=== PATIENT | female | born 2000 | race Caucasian/White ===

== ENCOUNTER 2020-01-15 08:48 | Observation (INO) | payer BC ==
--- NOTE | 2020-01-15 11:20 | ER Document Report ---
Entered by MAALCHI SÁNCHEZ SCRIBE 01/15/20 1049 Acting as scribe for:SEBASTIAN ETIENNE MD ED Skin Rash/Insect Bite/Abscs - General Chief Complaint: Abscess Stated Complaint: ABSCESS/TAILBONE Time Seen by Provider: 01/15/20 10:48 Mode of Arrival: Ambulatory Information source: Patient Notes: This 19 year old female patient presents to the emergency department today with complaints of an abscess to her tailbone. Patient states that she first noticed pain in this area on 01/08 and then on 01/11 she noticed a "bump" at the top of her buttocks. Patient was started on septra 800 BID for 10 days on 01/11 but the area has gotten larger and more painful per history. - Related Data Allergies/Adverse Reactions: Penicillins Allergy (Verified 01/15/20 09:01) Home Medications: . Colace Past Medical History - General Information source: Patient - Social History Smoking Status: Unknown if Ever Smoked Cigarette use (# per day): No Frequency of alcohol use: None Drug Abuse: None Occupation: works at an assitive living facility Family History: Reviewed & Not Pertinent - Medical History Medical History: Negative Surgical Hx: Negative Review of Systems - Review of Systems Constitutional: No symptoms reported EENT: No symptoms reported Cardiovascular: No symptoms reported Respiratory: No symptoms reported Gastrointestinal: No symptoms reported Genitourinary: No symptoms reported Female Genitourinary: No symptoms reported Musculoskeletal: No symptoms reported Skin: See HPI, Lesions - buttock abscess Hematologic/Lymphatic: No symptoms reported Neurological/Psychological: No symptoms reported -: Yes All other systems reviewed and negative Physical Exam - Vital signs Vitals: Temp Pulse Resp BP Pulse Ox 98.2 F 118 H 16 130/75 H 99 01/15/20 09:01 01/15/20 09:01 01/15/20 09:01 01/15/20 09:01 01/15/20 09:01 - Notes Notes: Physical Exam: General: Alert, appears well. HEENT: Normocephalic. Atraumatic. PERRL. Extraocular movements intact. Oropharynx clear. Neck: Supple. Non-tender. Respiratory: No respiratory distress. Clear and equal breath sounds bilaterally. Cardiovascular: Regular rate and rhythm. Abdominal: Gravid female. No distension. Normal Bowel Sounds. Back: No gross abnormalities. Extremities: Moves all four extremities. Upper extremities: Normal inspection. Normal ROM. Lower extremities: Normal inspection. No edema. Normal ROM. Neurological: Normal cognition. AAOx4. Normal speech. Psychological: Normal affect. Normal Mood. Skin: At the top of the gluteal cleft just off to the right of midline there is a 4-5 cm area of erythema and induration with central 2cm area of firmness consistent with abscess formation. This area is tender to palpation. Course - Vital Signs Vital signs: Temp Pulse Resp BP Pulse Ox 98.2 F 118 H 16 130/75 H 99 01/15/20 09:01 01/15/20 09:01 01/15/20 09:01 01/15/20 09:01 01/15/20 09:01 - Consults Dr. Herring Time consulted: 11:00 Consulted provider: will come to ER Discharge - Discharge Clinical Impression: Abscess of buttock, right Condition: Stable Disposition: ADMITTED OBSERVATION Admitting Provider: Surgicalist Unit Admitted: Surgical Floor I personally performed the services described in the documentation, reviewed and edited the documentation which was dictated to the scribe in my presence, and it accurately records my words and actions.
[2020-01-15] MEDS ORDERED: ONDANSETRON HCL INJ/PF 4 MG/2 ML SDV IV PRN (11:42)
[2020-01-15] MEDS ORDERED: DEXTROSE 5%-LACTATED RINGERS 1,000 ML IV PRN ×2 (11:42→15:43)
[2020-01-15] MEDS ORDERED: VANCOMYCIN HCL INJ 1000 MG VIAL IV ONE (11:45)
--- NOTE | 2020-01-15 11:54 | PDOC H&P ---
History of Present Illness Admission Date/PCP: 01/15/2020 Patient complains of: Pain to the sacrococcygeal area History of Present Illness: SHELBI GIRALDO is a 19 year old female who is 24 weeks noted pains along the sacral coccygeal area about 6 days ago. 3 days ago noted to have more pains and a lump on the sacrococcygeal area and given p.o. antibiotics by his primary physician 2 days ago. Pains are getting worse and patient's sought consultation in ED. Denies any fever no chills. Social History Smoking Status: Unknown if Ever Smoked Family History Family History: Reviewed & Not Pertinent Parental Family History Reviewed: Yes Children Family History Reviewed: No Sibling(s) Family History Reviewed.: No Medication/Allergy Allergies/Adverse Reactions: Penicillins Allergy (Verified 01/15/20 09:01) Review of Systems Constitutional: PRESENT: as per HPI Gastrointestinal: PRESENT: other - Pains in the sacrococcygeal area Physical Exam Vital Signs: Temp Pulse Resp BP Pulse Ox 98.2 F 118 H 16 130/75 H 99 01/15/20 09:01 01/15/20 09:01 01/15/20 09:01 01/15/20 09:01 01/15/20 09:01 Intake & Output 01/14/20 01/15/20 01/16/20 06:59 06:59 06:59 Weight 75 kg General appearance: PRESENT: mild distress Head exam: PRESENT: atraumatic Mouth exam: PRESENT: moist Neck exam: PRESENT: full ROM Respiratory exam: PRESENT: clear to auscultation donavon Cardiovascular exam: PRESENT: RRR Pulses: PRESENT: normal radial pulses Vascular exam: PRESENT: normal capillary refill GI/Abdominal exam: PRESENT: soft, other - There is redness at the coccygeal area more on the right side with a small bulge. This is very tender. Rectal exam: PRESENT: deferred Neurological exam: PRESENT: alert, oriented to person, oriented to place, oriented to time, oriented to situation Skin exam: PRESENT: normal color, warm Assessment & Plan - Diagnosis (1) Pilonidal abscess Is this a current diagnosis for this admission?: Yes (2) uterine 24 weeks Is this a current diagnosis for this admission?: Yes - Time Time Spent: 30 to 50 Minutes - Inpatient Certification Medical Necessity: Need For IV Fluids, Need for Pain Control, Need for IV Antibiotics, Need for Surgery - Plan Summary Plan Summary: 19-year-old female admitted for pilonidal abscess. She is 24 weeks . Plans: Keep n.p.o. Start IV vancomycin 2 OR for I&D
[2020-01-15] MEDS ORDERED: VANCOMYCIN HCL 1,000 MG in DEXTROSE 5%-WATER 250 ML IV PRN (11:55)
[2020-01-15 12:49] LABS: ABSOLUTE LYMPHOCYTES (AUTO) 1.3 10^3/uL (0.5-4.7); ABSOLUTE MONOCYTES (AUTO) 0.7 10^3/uL (0.1-1.4); BASOPHILS % (AUTO) 0.1 % (0-2); EOSINOPHILS % (AUTO) 0.3 % (0-6); HEMATOCRIT 36.4 % (36.0-47.0); HEMOGLOBIN 12.8 g/dL (12.0-15.5); MEAN CORPUSCULAR HEMOGLOBIN 31.6 pg (27.0-33.4); MEAN CORPUSCULAR HGB CONC 35.1 g/dL (32.0-36.0); MEAN CORPUSCULAR VOLUME 90 fl (80-97); MONOCYTES % (AUTO) 5.6 % (3-13); PLATELET COUNT 218 10^3/uL (150-450); RED BLOOD COUNT 4.04 10^6/uL (3.72-5.28); RED CELL DISTRIBUTION WIDTH 13.5 % (11.5-14.0); TOTAL CELLS COUNTED % (AUTO) 100 %; WHITE BLOOD COUNT 13.1 10^3/uL (4.0-10.5)
[2020-01-15 13:07] LABS: ANION GAP 5 (5-19); BLOOD UREA NITROGEN 8 mg/dL (7-20); CALCIUM 9.2 mg/dL (8.4-10.2); CARBON DIOXIDE 24 mmol/L (22-30); CHLORIDE 105 mmol/L (98-107); GLUCOSE 87 mg/dL (75-110); POTASSIUM 3.9 mmol/L (3.6-5.0)
[2020-01-15] MEDS ORDERED: FENTANYL CITRATE INJ/PF 100 MCG/2 ML AMPUL ONE (14:00)
[2020-01-15] MEDS ORDERED: PROPOFOL INJ 200 MG/20 ML VIAL IV ONE ×2 (14:00→14:52)
[2020-01-15] MEDS ORDERED: FENTANYL CITRATE INJ/PF 100 MCG/2 ML AMPUL IV PRN ×3 (14:28)
[2020-01-15] MEDS ORDERED: DIPHENHYDRAMINE HCL 50 MG/ML VIAL IV PRN (14:28)
[2020-01-15] MEDS ORDERED: MEPERIDINE HCL/PF INJ 25 MG/1 ML DISP.SYRIN IV PRN (14:28)
[2020-01-15] MEDS ORDERED: OXYCODONE-ACETAMINOPHEN 5-325 MG TABLET PO PRN ×2 (14:28)
[2020-01-15] MEDS ORDERED: LIDOCAINE 0.5% INJ-PF (5 MG/ML) 50 ML SDV ONE (14:28)
[2020-01-15] MEDS ORDERED: PROMETHAZINE HCL INJ 25 MG/1 ML VIAL IV PRN ×2 (14:28)
--- NOTE | 2020-01-15 15:06 | Operative Report ---
Operative Report DATE OF SURGERY: 01/15/20 PREOPERATIVE DIAGNOSIS: Pilonidal abscess POSTOPERATIVE DIAGNOSIS: Same OPERATION: Incision and drainage of pilonidal abscess SURGEON: JUAN ANTONIO HANSEN ANESTHESIA: LMAC TISSUE REMOVED OR ALTERED: Pus from pilonidal abscess COMPLICATIONS: None ESTIMATED BLOOD LOSS: 15 cc QUANTITATIVE BLOOD LOSS: 15 INTRAOPERATIVE FINDINGS: 4 cm by 4 cm x 4 cm deep pilonidal abscess PROCEDURE: After adequate IV sedation patient was placed in the prone position and the sacrococcygeal area was then prepped and draped in the usual sterile fashion. Appropriate timeout was then called. Next local anesthesia infiltrated along the pilonidal abscess site primarily along the right side. Next a small vertical incision made just lateral to the midline was made and a gush of yellowish purulent material came out. Cultures were then obtained. The incision was slightly extended and enough to allow digital inspection of the abscess cavity. The incision was then extended to a total of about 3cm. The cavity was then curetted and made sure that no other loculation's left. The cavity was then irrigated. The cavity was roughly measured 4 x 4 x 4 cm was then packed with quarter inch iodoform gauze using at least half of the bottle. All 4 x 4 were placed over the wound and adhesives placed. Patient tolerated procedure well and brought to recovery room in satisfactory condition.
[2020-01-15] MEDS ORDERED: KETOROLAC TROMETHAMINE INJ/PF 30 MG/1 ML SDV IV PRN (15:45)
[2020-01-15] MEDS: ACETAMINOPHEN 325 MG TABLET PO PRN ×2 (17:21→21:45)
[2020-01-15] MEDS: VANCOMYCIN HCL 1,000 MG in DEXTROSE 5%-WATER 250 ML IV SCH (21:47)
[2020-01-15] MEDS ORDERED: VANCOMYCIN HCL 1,000 MG in DEXTROSE 5%-WATER 250 ML IV SCH (22:00)
[2020-01-16] MEDS: ACETAMINOPHEN 325 MG TABLET PO PRN ×2 (02:27→06:26)
[2020-01-16] MEDS: VANCOMYCIN HCL 1,000 MG in DEXTROSE 5%-WATER 250 ML IV SCH (05:09)
--- NOTE | 2020-01-16 07:33 | PDOC DISCHARGE SUMMARY ---
General - Admit/Disc Date/PCP Admission Date/Primary Care Provider: 01/15/20 11:49 Discharge Date: 01/16/20 - Discharge Diagnosis Final Diagnosis: Pilonidal abscess uterine 24 weeks - Assessment Summary: Underwent incision and drainage of pilonidal abscess on 01/15/2020. On 01/16/2020 packing was removed and the wound looks good. Patient discharged on clindamycin and to do hot sitz bath 3 times a day for about a week. Arrangements for follow-up with the surgical clinic is made in 2 weeks. - Additional Information Resuscitation Status: Full Code Discharge Diet: As Tolerated Discharge Activity: Activity As Tolerated Referrals: BALJEET GIRALDO MD [ACTIVE STAFF] - 01/28/20 10:45 am (CALL THE OFFICE OF ANY QUESTIONS OR CONCERNS.) Home Medications: No Home Medications 01/16/20 History of Present Illiness History of Present Illness: SHELBI GIRALDO is a 19 year old female who is 24 weeks noted pains along the sacral coccygeal area about 6 days ago. 3 days ago noted to have more pains and a lump on the sacrococcygeal area and given p.o. antibiotics by his primary physician 2 days ago. Pains are getting worse and patient's sought consultation in ED. Denies any fever no chills. Hospital Course Hospital Course: Underwent incision and drainage of pilonidal abscess on 01/15/2020. Packing removed on 01/16/2020 and patient instructed to do hot sitz bath's 3 times a day for 1 to 2 weeks. Prescription for clindamycin given on discharge. Physical Exam Vital Signs: Temp Pulse Resp BP Pulse Ox 98.1 F 80 18 93/53 L 100 01/16/20 05:24 01/16/20 05:24 01/16/20 05:24 01/16/20 05:24 01/16/20 05:24 Intake & Output 01/15/20 01/16/20 01/17/20 06:59 06:59 06:59 Intake Total 1310 Output Total 70 Balance 1240 Weight 75 kg Exam: On removal of wound packing the wound looks clean small amount of bloody drainage. Results Laboratory Results: WBC 13.1 10^3/uL (4.0-10.5) H 01/15/20 12:12 RBC 4.04 10^6/uL (3.72-5.28) 01/15/20 12:12 Hgb 12.8 g/dL (12.0-15.5) 01/15/20 12:12 Hct 36.4 % (36.0-47.0) 01/15/20 12:12 MCV 90 fl (80-97) 01/15/20 12:12 MCH 31.6 pg (27.0-33.4) 01/15/20 12:12 MCHC 35.1 g/dL (32.0-36.0) 01/15/20 12:12 RDW 13.5 % (11.5-14.0) 01/15/20 12:12 Plt Count 218 10^3/uL (150-450) 01/15/20 12:12 Lymph % (Auto) 10.0 % (13-45) L 01/15/20 12:12 [place] % (Auto) 5.6 % (3-13) 01/15/20 12:12 Eos % (Auto) 0.3 % (0-6) 01/15/20 12:12 Baso % (Auto) 0.1 % (0-2) 01/15/20 12:12 Absolute Neuts (auto) 11.0 10^3/uL (1.7-8.2) H 01/15/20 12:12 Absolute Lymphs (auto) 1.3 10^3/uL (0.5-4.7) 01/15/20 12:12 Absolute Monos (auto) 0.7 10^3/uL (0.1-1.4) 01/15/20 12:12 Absolute Eos (auto) 0.0 10^3/uL (0.0-0.6) 01/15/20 12:12 Absolute Basos (auto) 0.0 10^3/uL (0.0-0.2) 01/15/20 12:12 Seg Neutrophils % 84.0 % (42-78) H 01/15/20 12:12 Sodium 134.1 mmol/L (137-145) L 01/15/20 12:12 Potassium 3.9 mmol/L (3.6-5.0) 01/15/20 12:12 Chloride 105 mmol/L (98-107) 01/15/20 12:12 Carbon Dioxide 24 mmol/L (22-30) 01/15/20 12:12 Anion Gap 5 (5-19) 01/15/20 12:12 BUN 8 mg/dL (7-20) 01/15/20 12:12 Creatinine 0.62 mg/dL (0.52-1.25) 01/15/20 12:12 Est GFR ( Amer) > 60 (>60) 01/15/20 12:12 Est GFR (MDRD) Non-Af > 60 (>60) 01/15/20 12:12 Glucose 87 mg/dL (75-110) 01/15/20 12:12 Calcium 9.2 mg/dL (8.4-10.2) 01/15/20 12:12 SARS-CoV-2 (PCR) NEGATIVE (NEGATIVE) 01/15/20 12:15 Plan Health Concerns: Healing of the wound Plan of Treatment: Clindamycin and hot sitz bath Goals: Complete healing of the wound Time Spent: Less than 30 Minutes
[2020-01-16 08:21] VITALS: BP 110/64
== END 2020-01-16 09:20 | disposition home or self-care (01) ==
LOC: ER 08:48 → EH 11:49 → 2N 16:18
PROVIDERS: ADMIT Surgery; ATTEND Surgery
DX: O98.812 Other maternal infectious and parasitic diseases complicating pregnancy, second trimester (principal); L05.01 Pilonidal cyst with abscess; Z3A.24 24 weeks gestation of pregnancy; Z03.818 Encounter for observation for suspected exposure to other biological agents ruled out; Z88.0 Allergy status to penicillin
CPT/HCPCS: 10080; 99284; 96365; 36415; 87040; 87070; 87205; 85025; 87635; 87075; 87077; 80048; 00300; G0378 ×2; J3010; J3490; J7060 ×2; J7121; J2704; J3370 ×2; C9803; 300